=== PATIENT | male | born 1990 | race Caucasian/White ===

== ENCOUNTER 2017-12-19 17:03 | Emergency (ER) | payer MEDICAID, OTHER ==
--- NOTE | 2017-12-19 17:23 | EDM.PDOC ---
ED HPI GENERAL MEDICAL PROBLEM - General Chief Complaint: Skin Complaint Stated Complaint: POSSIBLE INFECTION CHIN Time Seen by Provider: 12/19/17 17:17 Source of Information: Reports: Patient History Limitations: Reports: No Limitations - History of Present Illness INITIAL COMMENTS - FREE TEXT/NARRATIVE: HISTORY AND PHYSICAL: []27-year-old male presenting with concerns over a infection to his chin History of Present Illness: []Patient has had infections on his skin in the past was given Keflex for this and that helped This lesion was very small yesterday mild erythema More painful today slight edema and erythema area extending into his. [place] Patient has several medications for psychiatric purposes Review of Systems: As per history of present illness and below otherwise all systems reviewed and negative. Past medical history: As per history of present illness and as reviewed below otherwise noncontributory. Surgical history: As per history of present illness and as reviewed below otherwise noncontributory. Social history: No reported history of drug or alcohol abuse. Family history: As per history of present illness and as reviewed below otherwise noncontributory. Physical exam: Alert and oriented male speaking well in full sentences without any shortness of breath HEENT: Atraumatic, normocehpalic, pupils reactive, negative for conjunctival pallor or scleral icterus, mucous membranes moist, throat clear, neck supple, nontender, trachea midline. Chin has slightly raised area with erythema crustiness noted to the top of the lesion. Lungs: Clear to auscultation, breath sounds equal bilaterally, chest non tender. Heart: S1S2, regular, negative for clicks, rubs, or JVD. Abdomen: Soft, nondistended, nontender. Negative for masses or hepatossplenmegaly. Negative for costovertebral tenderness. Pelvis: Stable nontender. Genitourinary: Deferred. Rectal: Deferred Extremities: Atraumatic, negative for cords or calf pain. Neurovascular unremarkable. Neuro: Awake, alert, oriented. Cranial nerves II through XII unremarkable. Cerebellum unremarkable. Motor and sensory unremarkable throughout. Exam nonfocal. Diagnostics: [] Therapeutics: [] Impression: [Cellulitis Plan: []Discharged to home Antibiotic therapy Bactrim DS 1 twice a day 10 days Moist heat Definitive disposition and diagnosis as appropriate pending reevaluation and review of above. Onset: Sudden Duration: Day(s): (2) Lower Face Pain Score (Numeric/FACES): 7 - Related Data Allergies Allergy/AdvReac Type Severity Reaction Status Date / Time Penicillins Allergy Hives Verified 12/19/17 17:15 Home Meds: Home Meds ClonazePAM [KlonoPIN] 0.25 mg PO DAILY 12/19/17 [History] Divalproex Sodium [Depakote] 500 mg PO BID 12/19/17 [History] Mupirocin Oint [Bactroban Oint] 22 gm .XX Q12HR #1 tube 12/19/17 [Rx] QUEtiapine [SEROquel] 200 mg PO QPM 12/19/17 [History] Sulfamethoxazole/Trimethoprim [Bactrim Ds Tablet] 1 each PO BID #20 tablet 12/19 [Rx] ED ROS GENERAL - Review of Systems Review Of Systems: ROS reveals no pertinent complaints other than HPI. ED EXAM, SKIN/RASH Exam: See Below (see dictation) Course - Vital Signs Last Recorded V/S: Last Vital Signs Temp 36.9 C 12/19/17 17:12 Pulse 112 H 12/19/17 17:12 Resp 12 12/19/17 17:12 BP 144/91 H 12/19/17 17:12 Pulse Ox 98 12/19/17 17:12 Departure - Departure Time of Disposition: 17:20 Disposition: Home, Self-Care 01 Condition: Good Clinical Impression: Abscess Cellulitis Qualifiers: Site of cellulitis: face Qualified Code(s): L03.211 - Cellulitis of face - Discharge Information Prescriptions: Mupirocin Oint [Bactroban Oint] 22 gm .XX Q12HR #1 tube Sulfamethoxazole/Trimethoprim [Bactrim Ds Tablet] 1 each PO BID #20 tablet Instructions: Skin Abscess, Cellulitis, Adult Referrals: PCP,None [Primary Care Provider] - Additional Instructions: The following information is given to patients seen in the emergency department who are being discharged to home. This information is to outline your options for follow-up care. We provide all patients seen in our emergency department with a follow-up referral. The need for follow-up, as well as the timing and circumstances, are variable depending upon the specifics of your emergency department visit. If you don't have a primary care physician on staff, we will provide you with a referral. We always advise you to contact your personal physician following an emergency department visit to inform them of the circumstance of the visit and for follow-up with them and/or the need for any referrals to a consulting specialist. The emergency department will also refer you to a specialist when appropriate. This referral assures that you have the opportunity for followup care with a specialist. All of these measure are taken in an effort to provide you with optimal care, which includes your followup. Under all circumstances we always encourage you to contact your private physician who remains a resource for coordinating your care. When calling for followup care, please make the office aware that this follow-up is from your recent emergency room visit. If for any reason you are refused follow-up, please contact the [facility] emergency department at and asked to speak to the emergency department charge nurse. You were found to have an abscess/cellulitis to your face Moist heat to this area 3 times a day 15 minutes each time Prescriptions have been sent to your pharmacy electronically Bactroban apply sparingly twice daily for 1 week Bactrim DS 1 tablet twice daily 10 days Follow-up with your primary care provider
== END 2017-12-19 17:50 | disposition home or self-care (01) ==
LOC: MW.ED 17:03
DX: L03.211 Cellulitis of face (principal); L02.01 Cutaneous abscess of face; Z79.899 Other long term (current) drug therapy; Z88.0 Allergy status to penicillin
CPT/HCPCS: 99282; 99283

== ENCOUNTER 2017-12-20 20:18 | Emergency (ER) | payer MEDICAID | END 2017-12-20 21:12 | disposition left against medical advice (07) | LOC: MW.ED 20:18 | DX: Z53.21 Procedure and treatment not carried out due to patient leaving prior to being seen by health care provider (principal) ==

== ENCOUNTER 2017-12-21 11:46 | Observation (INO) | payer MEDICAID ==
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
[2017-12-21] MEDS ORDERED: Sodium Chloride 0.9% 2.5 ML Syringe FLUSH PRN (12:25)
[2017-12-21] MEDS ORDERED: Levofloxacin/Dextrose 5%-Water 500 MG in Premix Bag 1 BAG IV ONE (12:25)
[2017-12-21] MEDS ORDERED: Sodium Chloride 0.9% 10 ML Syringe FLUSH PRN (12:25)
[2017-12-21 13:09] LABS: CHLORIDE,CL 100 mmol/L (98-107); SODIUM,NA 136 mmol/L (136-148)
[2017-12-21] MEDS ORDERED: Ketorolac 30 MG/ML SDV IVPUSH ONE (14:48)
[2017-12-21] MEDS ORDERED: Ketorolac 30 MG/ML SDV ONE (14:50)
[2017-12-21] MEDS ORDERED: Acetaminophen/HYDROcodone 325-5 MG Tab PO PRN (15:17)
[2017-12-21] MEDS ORDERED: Ondansetron 4 MG/2 ML SDV IVPUSH PRN (15:17)
[2017-12-21] MEDS ORDERED: Ondansetron 4 MG Tab.DIS PO PRN (15:17)
[2017-12-21] MEDS ORDERED: Morphine 2 MG/ML Syringe IVPUSH PRN (15:17)
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
[2017-12-21] MEDS: Clindamycin Phosphate in D5W 900 MG in Premix Bag 1 BAG IV SCH ×2 (16:04)
[2017-12-21] MEDS ORDERED: QUEtiapine 100 MG Tab PO SCH (18:00)
[2017-12-21] MEDS: Divalproex Sodium Delayed-Release 500 MG Tab.CR PO SCH (20:10)
[2017-12-22] MEDS: Clindamycin Phosphate in D5W 900 MG in Premix Bag 1 BAG IV SCH ×6 (00:09→15:47)
[2017-12-22 05:51] LABS: CHLORIDE,CL 101 mmol/L (98-107); SODIUM,NA 136 mmol/L (136-148)
[2017-12-22] MEDS: Divalproex Sodium Delayed-Release 500 MG Tab.CR PO SCH (08:19)
[2017-12-22] MEDS ORDERED: ClonazePAM 0.5 MG Tab PO SCH (09:00)
[2017-12-22] MEDS ORDERED: traMADol 50 MG Tab PO ONE (12:14)
[2017-12-22] MEDS ORDERED: Ketorolac 30 MG/ML SDV IVPUSH ONE (12:15)
--- NOTE | 2017-12-22 17:35 | PCM.DCSUM1 ---
Discharge Summary - Hospital Course HPI Initial Comments: Discharge Summary Date of admission: 12/21/2017 Date of discharge: 12/22/17 Admitting diagnosis: #1. Superficial abscess of the chin with cellulitis #2. #3. #4. #5. Discharge diagnoses: #1. Superficial abscess now draining with cellulitis which is improving secondary to IV antibiotics #2. Past medical history significant for cellulitic infections #3. #4. #5. Consultations: None Procedures: None Hospitalization course: Patient was admitted overnight secondary to a abscess formation on the anterior aspect of his chin which initially was mildly draining but had stopped and started to form a larger induration. Patient was placed on IV clindamycin by Dr. Miranda. Patient was monitored overnight he is vital signs were stable, and when assessed in the a.m. the patient had self lanced the site of the abscess by picking at it and I was able to obtain wound cultures after expressing out the purulent discharge from the abscess. Patient was stable enough to be discharged home on oral antibiotics and a follow-up with his PCP Disposition on discharge: Home Condition on discharge: Stable Discharge medications: Clindamycin 300 mg every 6 hours for 10 days, nasal Bactroban for 6 weeks, opioids for 3 days for pain control Follow-up instructions: Patient has an appointment with Dr. Okeefe for establishment of care. - Discharge Data Discharge Date: 12/22/17 Discharge Disposition: Home, Self-Care 01 Condition: Good - Patient Instructions Diet: Usual Diet as Tolerated Activity: As Tolerated Wound/Incision Care: Keep Operative Site/Wound Site Clean and Dry, Change Dressing Daily Notify Provider of: Fever, Increased Pain, Swelling and Redness, Drainage - Discharge Plan Prescriptions/Med Rec: Clindamycin HCl [Cleocin] 300 mg PO Q6H 10 Days #40 cap Mupirocin Oint [Bactroban Nasal Oint] 1 applic USMAN BID 42 Days #1 tube traMADol [Ultram] 50 mg PO Q8H PRN 4 Days #12 tab PRN Reason: Pain Home Medications: Home Meds ClonazePAM [KlonoPIN] 0.25 mg PO DAILY 12/19/17 [History] Divalproex Sodium [Depakote] 500 mg PO BID 12/19/17 [History] QUEtiapine [SEROquel] 200 mg PO QPM 12/19/17 [History] Clindamycin HCl [Cleocin] 300 mg PO Q6H 10 Days #40 cap 12/22/17 [Rx] Mupirocin Oint [Bactroban Nasal Oint] 1 applic USMAN BID 42 Days #1 tube 12/22/17 [Rx] traMADol [Ultram] 50 mg PO Q8H PRN 4 Days #12 tab 12/22/17 [Rx] Patient Handouts: Clindamycin capsules, Tramadol tablets, Cellulitis, Adult, [id number], Mupirocin skin cream or ointment Referrals: Gurmeet Okeefe [Resident] - 12/31/17 9:30 am - Discharge Summary/Plan Comment DC Time >30 min.: No - Patient Data Vitals - Most Recent: Last Vital Signs Temp 36.3 C 12/22/17 11:45 Pulse 79 12/22/17 11:45 Resp 18 12/22/17 11:45 BP 124/56 L 12/22/17 11:45 Pulse Ox 97 12/22/17 15:20 Weight - Most Recent: 165.561 kg I&O - Last 24 hours: Intake & Output 12/22/17 12/22/17 12/22/17 06:59 14:59 22:59 Intake Total 50 Balance 50 Lab Results - Last 24 hrs: Laboratory Results - last 24 hr 12/22/17 12/22/17 Range/Units 05:10 05:10 WBC 12.21 H (4.0-11.0) K/uL RBC 5.22 (4.50-5.90) M/uL Hgb 16.8 (13.0-17.0) g/dL Hct 46.9 (38.0-50.0) % MCV 89.8 (80.0-98.0) fL MCH 32.2 H (27.0-32.0) pg MCHC 35.8 (31.0-37.0) g/dL RDW Std Deviation 40.6 (28.0-62.0) fl RDW Coeff of Francisca 12 (11.0-15.0) % Plt Count 195 (150-400) K/uL MPV 9.50 (7.40-12.00) fL Neut % (Auto) 72.3 (48.0-80.0) % Lymph % (Auto) 14.6 L (16.0-40.0) % [place] % (Auto) 12.4 (0.0-15.0) % Eos % (Auto) 0.6 (0.0-7.0) % Baso % (Auto) 0.1 (0.0-1.5) % Neut # (Auto) 8.8 H (1.4-5.7) K/uL Lymph # (Auto) 1.8 (0.6-2.4) K/uL [place] # (Auto) 1.5 H (0.0-0.8) K/uL Eos # (Auto) 0.1 (0.0-0.7) K/uL Baso # (Auto) 0.0 (0.0-0.1) K/uL Nucleated RBC % 0.0 /100WBC Nucleated RBCs # 0 K/uL Sodium 136 (136-148) mmol/L Potassium 4.3 (3.5-5.1) mmol/L Chloride 101 (98-107) mmol/L Carbon Dioxide 24.0 (21.0-32.0) mmol/L BUN 13 (7.0-18.0) mg/dL Creatinine 1.1 (0.8-1.3) mg/dL Est Cr Clr Drug Dosing 119.49 mL/min Estimated GFR (MDRD) > 60.0 ml/min Glucose 104 (74-106) mg/dL Calcium 9.0 (8.5-10.1) mg/dL Med Orders - Current: Current Medications Hydrocodone Bitart/Acetaminophen ([place] 325-5 Mg) 1 tab PO Q4H PRN PRN Reason: Pain (moderate 4-6) Last Admin: 12/22/17 07:36 Dose: 1 tab Clonazepam (Klonopin) 0.25 mg PO DAILY [facility] Last Admin: 12/22/17 08:18 Dose: 0.25 mg Divalproex Sodium (Depakote) 500 mg PO BID [facility] Last Admin: 12/22/17 08:19 Dose: 500 mg Clindamycin Phosphate 900 mg/ (Premix) 50 mls @ 100 mls/hr IV Q8H [facility] Last Admin: 12/22/17 15:47 Dose: 100 mls/hr Ondansetron HCl (Zofran Odt) 4 mg PO Q4H PRN PRN Reason: nausea, able to take PO Ondansetron HCl (Zofran) 4 mg IVPUSH Q4H PRN PRN Reason: Nausea Quetiapine Fumarate (Seroquel) 200 mg PO QPM [facility] Last Admin: 12/21/17 18:06 Dose: 200 mg Sodium Chloride (Saline Flush) 10 ml FLUSH ASDIRECTED PRN PRN Reason: Keep Vein Open Sodium Chloride (Saline Flush) 2.5 ml FLUSH ASDIRECTED PRN PRN Reason: Keep Vein Open Discontinued Medications Levofloxacin/Dextrose 500 mg/ (Premix) 100 mls @ 100 mls/hr IV ONETIME ONE Stop: 12/21/17 13:24 Last Admin: 12/21/17 13:11 Dose: 100 mls/hr Ketorolac Tromethamine (Toradol) 30 mg IVPUSH ONETIME ONE Stop: 12/21/17 14:49 Last Admin: 12/21/17 14:52 Dose: 30 mg Ketorolac Tromethamine (Toradol) Confirm Administered Dose 30 mg .ROUTE .STK- MED ONE Stop: 12/21/17 14:51 Last Admin: 12/21/17 14:54 Dose: Not Given Ketorolac Tromethamine (Toradol) 30 mg IVPUSH ONETIME ONE Stop: 12/22/17 12:16 Last Admin: 12/22/17 12:40 Dose: 30 mg Morphine Sulfate (Morphine) 2 mg IVPUSH Q2H PRN PRN Reason: Pain (severe 7-10) Stop: 12/22/17 15:22 Tramadol HCl (Ultram) 50 mg PO ONETIME ONE Stop: 12/22/17 12:15 *Q Meaningful Use (DIS) - VTE *Q VTE Criteria *Q: - Stroke *Q Stroke Criteria *Q: - AMI *Q AMI Criteria *Q:
== END 2017-12-22 17:00 | disposition home or self-care (01) ==
LOC: MW.ED 11:46 → MW.MS 13:50 → EEVIPCON 13:50
PROVIDERS: ADMIT Family Medicine; ATTEND Family Medicine
DX: L03.211 Cellulitis of face (principal); L02.01 Cutaneous abscess of face; F43.10 Post-traumatic stress disorder, unspecified; F41.9 Anxiety disorder, unspecified; F32.9 Major depressive disorder, single episode, unspecified; Z79.899 Other long term (current) drug therapy; Z88.0 Allergy status to penicillin; Z87.891 Personal history of nicotine dependence
CPT/HCPCS: 36415; 80048; 80053; 85025; 87040; 87070; 96365; 96375; 99285; A9270; J1885; J1956; 87077; 87186; 96376; 99283; G0378

== ENCOUNTER 2018-01-11 16:25 | Emergency (ER) | payer MEDICAID ==
[2018-01-11] MEDS ORDERED: Ibuprofen 800 MG Tab PO ONE (16:47)
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
--- NOTE | 2018-01-12 13:35 | CR ---
EXAM DATE: 01/11/18 PATIENT'S AGE: 27 Patient: CHANDLER ADAMS Facility: [place], [place] Site . Site : 1990 Study: XRay Extremity Left foot [id number]/2018 5:00:22 PM Ordering Physician: Micheal Phipps Final Report: INDICATION: Cough. TECHNIQUE: Three views left foot. FINDINGS: No acute fracture or dislocation in left foot. Minimal spurring posterior calcaneus. Hammertoe deformities. [id number] narrowing left 1st MTP joint. Remainder negative. Dictated by Mele Davis MD @ Jan 11 2018 5:01PM (Electronic Signature) Report Signed by Proxy. JOSE
== END 2018-01-11 17:19 | disposition home or self-care (01) ==
LOC: MW.ED 16:25
DX: S93.602A Unspecified sprain of left foot, initial encounter (principal); F41.9 Anxiety disorder, unspecified; F32.9 Major depressive disorder, single episode, unspecified; Z88.0 Allergy status to penicillin; Z87.891 Personal history of nicotine dependence; W10.9XXA Fall (on) (from) unspecified stairs and steps, initial encounter
CPT/HCPCS: 73620; 99283; A9270; 99282

== ENCOUNTER 2019-05-10 15:26 | Emergency (ER) | payer SELFPAY ==
[2019-05-10] MEDS ORDERED: Glucagon,Human Recombinant 1 MG Vial IVPUSH ONE (15:36)
[2019-05-10] MEDS ORDERED: Alum Hydrox/Mag Hydrox/Simeth 15 ML, Lidocaine 2% 5 ML PO ONE ×2 (15:48)
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
--- NOTE | 2019-05-10 16:26 | CR ---
INDICATION: Question foreign body (ease hard candy or chip). TECHNIQUE: Soft tissue technique AP and lateral images of the neck. COMPARISON: None. FINDINGS: No foreign body apparent. Airway normal in appearance. No soft tissue swelling. IMPRESSION: No foreign body evident. Dictated by Hira Mcneill MD @ May 10 2019 4:24PM Signed by Dr. Hira Mcneill @ May 10 2019 4:26PM
== END 2019-05-10 16:41 | disposition home or self-care (01) ==
LOC: MW.ED 15:26
DX: R09.89 Other specified symptoms and signs involving the circulatory and respiratory systems (principal); F17.210 Nicotine dependence, cigarettes, uncomplicated; Z88.0 Allergy status to penicillin
CPT/HCPCS: 70360; 99283; A9270

== ENCOUNTER 2019-10-08 12:47 | Emergency (ER) | payer SELFPAY ==
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
== END 2019-10-08 13:41 | disposition home or self-care (01) ==
LOC: MW.ED 12:47
DX: J11.1 Influenza due to unidentified influenza virus with other respiratory manifestations (principal); Z88.0 Allergy status to penicillin
CPT/HCPCS: 99282; 99283

== ENCOUNTER 2019-10-11 05:54 | Emergency (ER) | payer SELFPAY ==
[2019-10-11] MEDS: Ondansetron 4 MG/2 ML SDV IVPUSH ONE (06:23)
[2019-10-11] MEDS: Sodium Chloride 0.9% 1,000 ML IV ONE ×2 (06:23→07:18)
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
[2019-10-11 06:37] LABS: BLOOD UREA NITROGEN,BUN 14 mg/dL (7.0-18.0); CHLORIDE,CL 94 mmol/L (98-107); GLUCOSE RANDOM 112 mg/dL (74-106); POTASSIUM,K 4.5 mmol/L (3.5-5.1); SODIUM,NA 130 mmol/L (136-148)
== END 2019-10-11 08:22 | disposition home or self-care (01) ==
LOC: MW.ED 05:54
DX: K52.9 Noninfective gastroenteritis and colitis, unspecified (principal); Z88.0 Allergy status to penicillin
CPT/HCPCS: 36415; 80053; 85025; 87081; 87804; 87880; 96361; 96374; 99284; J2405; J7030; 99283

== ENCOUNTER 2020-01-26 14:04 | Emergency (ER) | payer SELFPAY ==
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
--- NOTE | 2020-01-26 14:52 | CR ---
Right knee: AP, lateral and sunrise patellar views right knee were obtained. Joint effusion is seen. Minimal medial joint space narrowing is seen as compared to the lateral joint. Patellofemoral joint appears within normal limits. No acute fracture or other bony abnormality is identified. Impression: 1. Joint effusion and minimal medial joint space narrowing. Diagnostic code #2 Study was dictated in MDT
== END 2020-01-26 15:12 | disposition home or self-care (01) ==
LOC: MW.ED 14:04
DX: S83.91XA Sprain of unspecified site of right knee, initial encounter (principal); Z88.0 Allergy status to penicillin; X50.1XXA Overexertion from prolonged static or awkward postures, initial encounter
CPT/HCPCS: 73562-26-RT; 73562-RT; 99283; 99283-25